=== PATIENT | male | born 1955 | race Caucasian/White ===

== ENCOUNTER 2024-09-15 10:48 | Outpatient (REF) | payer MEDICARE, SELFPAY ==
--- OUTSIDE RECORDS SUMMARY | 2024-09-15 11:55 | XMS_ITS | Continuity of Care Document ---
Author Organization [facility] Address [address] [facility] [place] [address] [place] [address] Assessment Encounter Date Assessment Date Assessment LastModified by Organization Details LastModified Time 09/15/2024 09/15/2024 Patient presented for medication refill. Patient tolerating medication well at current dose without adverse effects. Refilled as below. Discussed plan with patient, who expressed understanding . Follow up as noted below. [email or web address] Not available 09/15/2024 10:26:47 Plan of Treatment Reminders Order Date Submit Date Provider Last Modified By Organization Details Last Modified Time Details Appointments FOLLOW UP 15 2024 10:00A M AMY MORATAYA Not available Not available Not available Lab CMP, serum or plasma 2024 025 [facility], [address] [place] [address], [address], 09/15/2024 10:35:19 CBC w/ auto diff 2024 025 [facility], [address] [place] [address], [id number], 09/15/2024 10:35:19 PSA, serum or plasma 2024 025 [facility], [address] [place] [address], [address], 09/15/2024 10:35:19 Referral None recorded . Procedures None recorded . Surgeries None recorded . Imaging None recorded . Medication Orders None recorded . Patient TargetsNo targets recorded. Patient InstructionsNo instructions recorded. Reason for Referral None Reported. 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 3 13:51:27 M? ? ?ni? ? ?re's disease 84693140 Active 2022 AMY MORATAYA [address] [place], [address], [facility] 3 10:51:41 Infectio n of tooth 402186366 Active 2022 AMY MORATAYA [address] [place], [address], 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 Medical Equipment None Reported. Allergies Allergen ID Allergen Name Allergen Category Reaction Reaction Severity Criticality Documentation Date Start Date Code Code System Note Provider Name and Address Organization Details Recorded Time 7069 lisinopri l medicatio n cough Not available Not available 12/06/2022 40682 RxNorm AMY MORATAYA [address] [place], [address], [facility] 3 10:18:40 Medications Name Sig Start Date Stop Date Status Note LastModified by Organization Details LastModified Time amoxicillin 500 mg capsule TAKE 1 CAPSULE BY MOUTH EVERY 8 HOURS FOR 10 DAYS active Not Available Not Available No t Available losartan 25 mg tablet TAKE 1 TABLET BY MOUTH EVERY DAY active Not Available Not Available No t Available lisinopril 5 mg tablet TAKE 1 TABLET BY MOUTH EVERY DAY 12/06 completed Not Available Not Available Not Available Vitals Date Recorded Body height Body mass index (BMI) Body weight Heart rate Oxygen saturation Oxygen saturation in Arterial blood by Pulse oximetry Systolic blood pressure Diastolic blood pressure Provider Name and Address Organization Details Last Updated DateTime 5 181.61 cm 26.3 kg/m2 65332.2 2 g 68 /min 98 % 98 % 124 mm[Hg] 82 mm[Hg] Melinda White [facility] 5 10:13:29 Social History Question Answer Notes LastModified by Organizat ion Details LastModified Time Tobacco Smoking Status Never Smoker Not Available [employer] 03/07/2020 03:36:24 What Was The Date Of Your Most Recent Tobacco Screening? 09/15/2024 [email or web address] Information not available 09/15/2024 Sex: Unknown Functional Status None recorded. Mental Status None recorded. Family History Nothing Reported. Medical History No medical history recorded. Past Encounters Encounter ID Performer Location Encounter Start Date Encounter Closed Date Diagnosis/Indication Diagnosis SNOMED-CT Code Diagnosis ICD10 Code Diagnosis Note [id number] Sumeet Acuña DO [facility] [address] [facility],[place] [place] [address] 09/15/2024 10:06:19 09/15/2024 10:49:29 Hypertensive disorder 01807988 I10 agreed to trial 5 mg lisinopril Urinary fr equency due to benign prostatic hypertrophy 5969045314 19702 N40.1 R35.0 needs recheck levels Health Concerns Section Related Observation LastModified by Organization Detai ls LastModified Time None Recorded Concern Status LastModified by Organization Details LastModified Time None Recorded Payers Encounter Date Sequence Insurance Name Policy Number Policy Melo Covered Member ID Melo Member ID Guarantor Name 09/15/2024 1 [place]ICARE [place]: [employer] Alan Meier [id number] 3 Alan Meier Notes Date Note Type Note Provider Name a nd Address Organization Details Recorded Time 09/15/2024 text/html medication f/u HTN: today in the office the patient BP is 124/82 L arm sittingthe patient is doing well on the BP medication with no side effects and no adjustment of their medications needed today at the appointmentfeliberto frank on medicationdenies chest pain, sob, ankle swelling, orthopnea, palpitations seasonal allergies: stable per patientno significant changes or concernsdoesn't use anti-histamine, no severe enough to warrant it cough: occasional, influenced by the pollen and occasional acid refluxdeclines intervention at this time needs f/u lab workrecheck PSA AMY MORATAYA [address] [place] [address], [place], [address], [facility] 09/15/2024 10:36:41
--- OUTSIDE RECORDS SUMMARY | 2024-09-15 11:55 | XMS_ITS | Data Portability ---
Author Organization [facility] Address [address] [place] [address] Assessment Encounter Date Assessment Date Assessment LastModified by Organization Details LastModified Time 09/23/2022 09/23/2022 The patient denies recent falls or recurrent falls. Denies instability, weakness, abnormal gait, or difficulties with movement. The patient wears correct, supportive shoes and is not otherwise severely visually impaired. The patient is full weight bearing and if using the assistance of a cane or walker feels supported and stable with the use of such devices. All medical conditions have been taken into account that may pose a risk for the patient for falls. Home trudy, carpets and/or rugs do not pose a challenge for the patient. The patient has been educated about the use of vitamin D supplementation for bone health and prevention of hypotensive episodes that may increase risk for fall. All question and concerns were answered to the patient's satisfaction. [email or web address] Not available 09/23/2022 13:46:43 09/15/2024 09/15/2024 Patient presented for medication refill. Patient tolerating medication well at current dose without adverse effects. Refilled as below. Discussed plan with patient, who expressed understanding. Follow up as noted below. [email or web address] Not available 09/15/2024 10:26:47 Plan of Treatment Reminders Order Date Submit Date Provider Last Modified By Organization Details Last Modified Time Details Appointments FOLLOW UP 15 2024 10:00A M AMY MORATAYA Not available Not available Not available Lab CMP, serum or plasma 2024 025 [facility], [address] [place] [address], [place], [address], 09/15/2024 10:35:19 CBC w/ auto diff 2024 025 [facility], [address] [place] [address], [address], 09/15/2024 10:35:19 PSA, serum or plasma 2024 025 [facility], [address] [place] [address], [address], 09/15/2024 10:35:19 urinalysi s, dipstick [address] [facility], [address] [facility], [address], [place], [address], 08/15/2017 14:32:36 CMP, serum or plasma [address] [facility], [address] [place] [address], [address], 09/19/2017 06:44:09 lipids, total, serum [address] [facility], [address] [place] [address], [address], 09/19/2017 06:44:09 CBC w/ diff [address] [facility], [address] [place] [address], [address], 09/19/2017 06:44:09 PSA, total + free, serum or plasma [address] [facility], [address] [place] [address], [address], 09/19/2017 06:44:09 Referral None recorded. Procedures None recorded. Surgeries None recorded. Imaging US, duplex, carotid artery - Patient is self pay- does not have insurance 2022 023 [facility], [address] [place], [address], 09/25/2022 08:18:25 CT, head + brain, w/o contrast - Patient is self pay- does not have insurance 2022 023 [facility], [address] [facility], [place], [address], 09/25/2022 08:18:26 Medication Orders losartan 25 mg tablet 2022 023 FABIANO [id number], [address] [place], [address], 12/06/2022 10:18:26 lisinopri l 5 mg tablet 2022 023 rtryba [id number], [address] [place], [address], 12/06/2022 10:17:56 Patient TargetsNo targets recorded. Patient InstructionsNo instructions recorded. Reason for Referral None Reported. Results Created Date Observation Date Name Description Value Unit Range Abnormal Flag Note LastModifiedBy Organization Detail LastModifiedTime 08/16/19 18 08/15/2017 urina lysis , dipst ick Leukocytes Small Not Available [facility] [address], [place], [address], 08/15/2017 13:55:55 08/16/19 18 08/15/2017 urina lysis , dipst ick Nitrite negati ve Not Available [facility] [address] [place] [address], [place], [address], 08/15/2017 13:55:55 08/16/19 18 08/15/2017 urina lysis , dipst ick Urobilinogen .2 Not Available [facility] [address], [place], [address], 08/15/2017 13:55:55 08/16/19 18 08/15/2017 urina lysis , dipst ick Protein Trace Not Available [facility] [address], [place], [address], 08/15/2017 13:55:55 08/16/19 18 08/15/2017 urina lysis , dipst ick pH 6.0 Not Available [facility] [address] [facility] [address], [place], [address], 08/15/2017 13:55:55 08/16/19 18 08/15/2017 urina lysis , dipst ick Blood Large Not Available [facility] [address] [facility] [address], [place], [address], 08/15/2017 13:55:55 08/16/19 18 08/15/2017 urina lysis , dipst ick Specific [place] 1.020 Not Available [facility] [address] [facility] [address], [place], [address], 08/15/2017 13:55:55 08/16/19 18 08/15/2017 urina lysis , dipst ick Ketone Negati ve Not Available [facility] [address] [facility] [address], [place], [address], 08/15/2017 13:55:55 08/16/19 18 08/15/2017 urina lysis , dipst ick Bilirubin Negati ve Not Available [facility] [address] [facility] [address], [place], [address], 08/15/2017 13:55:55 08/16/19 18 08/15/2017 urina lysis , dipst ick Glucose Negati ve Not Available [facility] [address] [facility] [address], [place], [address], 08/15/2017 13:55:55 08/16/19 18 08/15/2017 urina lysis , dipst ick Appearance Clear Not Available [facility] [address] [facility] [address], [place], [address], 08/15/2017 13:55:55 08/16/19 18 08/15/2017 urina lysis , dipst ick Color Yellow Not Available [facility] [address] [facility] [address], [place], [address], 08/15/2017 13:55:55 10/04/19 23 10/03/2022 CT, head + brain , w/o contr ast No observ ation record ed. [address], [address], 10/04/2022 12:44:28 10/04/19 23 10/03/2022 US, jyoti redd, dotty id arter y No observ ation record ed. [address], [address], 10/04/2022 12:44:28 Result Notes None recorded. Problems Name Problem SNOMED Code Status Onset Date Resolution Date Notes Provider Name and Address Organization Details Recorded Time Dizzines s 045514521 Active 2022 AMY MORATAYA [address] [place] [address], [address], [facility] 3 13:50:12 Hyperten sive disorder 65798830 Active 2022 AMY MORATAYA [address] [place] [address], [address], [facility] 3 13:51:27 M? ? ?ni? ? ?re's disease 45715652 Active 2022 AMY MORATAYA [address] [place], [address], [facility] 3 10:51:41 Infectio n of tooth 664295621 Active 2022 AMY MORATAYA [address] [place], [address], [facility] 3 15:51:03 Rheumato id arthriti s 00830224 Active 2017 arthritis tx center Pam Clarkgordon mead [facility] 8 16:43:20 Inguinal hernia 961665907 Active 2017 B/L repair 35 years ago Pam Clarkgordon mead 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 Pam Clarkgordon mead [facility] 8 16:44:12 Benign prostati c hyperpla marquez 264082122 Active 2017 [facility] [address] [place], [address], [facility] 8 14:15:22 Blood in urine 04304905 Active 2017 has seen uro, with neg cysto August [facility] [address] [place], [address], [facility] 8 14:16:26 Urinary frequenc y due to benign prostati c hypertro phy 14123453030 9102 Active 2024 AMY MORATAYA [address] [place], [address], [facility] 5 10:27:07 Problem Notes None recorded. Procedures Surgical History None recorded. Imaging Results Imaging Date Name Status LastModified by Organiz ation Details LastModified Time 10/03/2022 CT, head + brain, w/o contrast completed [address], [address], 10/04/2022 12:44:28 10/03/2022 US, duplex, carotid artery completed [address], [address], 10/04/2022 12:44:28 Procedure Notes None recorded. Medical Equipment None Reported. Allergies Allergen ID Allergen Name Allergen Category Reaction Reaction Severity Criticality Documentation Date Start Date Code Code System Note Provider Name and Address Organization Details Recorded Time 0919 lisinopri l medicatio n cough Not available Not available 12/06/2022 97425 RxNorm AMY MORATAYA [address] [place], [address], [facility] 3 10:18:40 Medications Name Sig [...] and Address Organization Details Last Updated DateTime 8 181.61 cm 25.1 kg/m2 22779.8 9 g 74 /min 96 % 96 % 110 mm[Hg] 90 mm[Hg] Pam Leger [facility] 8 13:55:06 Date Recorded Systolic blood pressure Diastolic blood pressure Provider Name and Address Organization Details Last Updated DateTime 08/15/2017 112 mm[Hg] 86 mm[Hg] August SANDOVAL AndreaAMBER [address] [place], [address], [facility] 08/15/2017 14:31:28 Date Recorded Body weight Heart rate Oxygen saturation Oxygen saturation in Arterial blood by Pulse oximetry Systolic blood pressure Diastolic blood pressure Provider Name and Address Organization Details Last Updated DateTime 3 [address].8 4 g 78 /min 98 % 98 % 160 mm[Hg] 88 mm[Hg] Ana Rosa Rodriguez [facility] 3 13:39:21 Date Recorded Body height Body mass index (BMI) Body weight Heart rate Oxygen saturation Oxygen saturation in Arterial blood by Pulse oximetry Systolic blood pressure Diastolic blood pressure Provider Name and Address Organization Details Last Updated DateTime 5 181.61 cm 26.3 kg/m2 45960.2 2 g 68 /min 98 % 98 % 124 mm[Hg] 82 mm[Hg] Melinda White [facility] 5 10:13:29 Social History Question Answer Notes LastModified by Organizat ion Details LastModified Time Tobacco Smoking Status Never Smoker Not Available [facility] 03/07/2020 03:36:24 What Was The Date Of Your Most Recent Tobacco Screening? 09/15/2024 [email or web address] Information not available 09/15/2024 Sex: Unknown Functional Status None recorded. Mental Status None recorded. Family History Nothing Reported. Medical History No medical history recorded. Past Encounters Encounter ID Performer Location Encounter Start Date Encounter Closed Date Diagnosis/Indication Diagnosis SNOMED-CT Code Diagnosis ICD10 Code Diagnosis Note [id number] Sumeet Acuña [facility] [address] [facility],[place] [address] 08/15/2017 13:19:26 08/15/2017 15:54:04 Adult health examination 074993048 Z00.00 Benign pro static hyperplasia 823461389 N40.0 will recheck PSA Actinic keratosis 007 L57.0 derm referral - pt given list will call once he has insurance [id number] Sumeet Acuña [facility] [address] [facility] [place] [address] 09/23/2022 13:31:18 09/23/2022 14:04:53 Dizziness 171247806 R42 agreed to testing since this was not done in the ER Hypertensive disorder 38 715495 I10 agreed to trial 5 mg lisinopril [id number] Sumeet Acuña [facility] [address] [place] [address], [place] [address] 12/06/2022 08:07:31 12/06/2022 15:42:46 Hypertensive disorder 72948822 I10 agreed to trial 5 mg lisinopril [id number] Smueet Acuña [facility] [address] [place] [address],[facility] [place] [address] 09/15/2024 10:06:19 09/15/2024 10:49:29 Hypertensive disorder 04062469 I10 agreed to trial 5 mg lisinopril Urinary fr equency due to benign prostatic hypertrophy 9564213099 47509 N40.1 R35.0 needs recheck levels Health Concerns Section Related Observation LastModified by Organization Detai ls LastModified Time None Recorded Concern Status LastModified by Organization Details LastModified Time None Recorded Advance Directives Directive None Recorded Payers Encounter Date Sequence Insurance Name Policy Number Policy Melo Covered Member ID Melo Member ID Guarantor Name 08/15/2017 1 *SELF PAY* [employer] 09/23/2022 SLIDING FEE SCHEDULE - DISCOUNT Alan Meier 12/06/2022 SLIDING FEE SCHEDULE - DISCOUNT Alan Meier 09/15/2024 1 MEDICARE B-[place]: [employer] [facility] Alan Meier [id number] Alan Meier Notes Date Note Type Note Provider Name and Address Organization Details Recorded Time 8 text/html Annual WellnessReported bypatient.Diet and Nutrition:healthy diet; discussed vitamin and supplement use; discussed portion control; discussed maintaining calcium balance; discussed diet improvement Fracture Risk:no history of fractures; no recent explained fracture; no sudden unexplained fractures; no previous musculoskeletal injuries Physical Activity:exercises on a regular basis; good physical condition Additional Lifestyle Factors:no tobacco use; no alcohol intake Depression Risk:never feels sad, empty, or tearful; no loss of interest in activities; no significant changes in weight; no sleep disturbances or insomnia; no agitation; no loss of energy; no feelings of worthlessness or guilt; no thoughts of suicide; no history of depression; no history of mood disorders Hearing:no loss of hearing Vision:worse near; congenital vision near sightednessNotes:12 system ROS negative except where noted above- denies: chest pain, palp, sob, ankle swelling, visual problems, numbness or tingling extremities, abdominal pain, bowel/bladder issues, sexual dysfunction, abnormal bleeding, sx of sinus/respiratory infection , headaches, dizziness/lightheadedne ss, rashes, or nail changes. August YAMILET Andrea [address] [place] [address], [address], [facility] 08/15/2017 14:35:11 3 text/html ER fu/re-establish patient the patient reports that he developed balance issues, tinnitus, and pressure in the ears bilaterallyended up at the ER; BP elevated by cardio exam was unremarkablethe patient's BP is elevated today in office but he does report anxiousthe patient's BP at home is usually averages around mid's 140 over 70 to 80s will fu with pt after his imaging returnsagreed to this plan started on lisinopril 5 mgwill monitor BP at home and fu with pt with BP and imaging when he returns AMY MORATAYA [address] [place], [address], [facility] 09/23/2022 13:56:31 3 text/html BP check tele-med phone callpatient consents phone call 127/84 prior to this phone callwill cont to monitor his BP at homewill check it more closely does have the cough with lisinoprilagreed to fu with change to losartan instead which should control his BP just as well just without the cough no changes in symptomsoccasional dizziness, not as bad as before, hoping so of this is related to his BP AMY MORATAYA [address] [place], [address], [facility] 12/06/2022 10:27:09 5 text/html medication f/u HTN: today in the office the patient BP is 124/82 L arm sittingthe patient is doing well on the BP medication with no side effects and no adjustment of their medications needed today at the appointmentwell-control led on medicationdenies chest pain, sob, ankle swelling, orthopnea, palpitations seasonal allergies: stable per patientno significant changes or concernsdoesn't use anti-histamine, no severe enough to warrant it cough: occasional, influenced by the pollen and occasional acid refluxdeclines intervention at this time needs f/u lab workrecheck PSA AMY MORATAYA [address] [place], [address], [facility] 09/15/2024 10:36:41
[2024-09-15 13:32] LABS: MANUAL DIFF FLAG NO
[2024-09-15 13:56] LABS: Basophils Absolute Auto 0.1 X10*3/uL (0.0-0.2); Basophils Percent Auto 0.8 % (0-2); Eosinophils Absolute Auto 0.3 X10*3/uL (0.0-0.4); Eosinophils Percent Auto 3.5 % (0-4); Hematocrit 42.9 % (42.0-52.0); Hemoglobin 14.6 g/dl (14.0-18.0); Imm Gran Abs Auto 0.02 X10*3/uL (0.00-0.03); Imm Gran Pct Auto 0.3 % (0.0-0.4); Lymphocytes Absolute Auto 1.6 X10*3/uL (1.2-4.9); Lymphocytes Percent Auto 21.2 % (20-40); Mean Corpuscular Hemoglobin 31.6 pg (27.0-33.0); Mean Corpuscular Volume 92.9 fL (80.0-98.0); Mean Platelet Volume 9.8 fL (9.4-12.4); Monocytes Absolute Auto 0.3 X10*3/uL (0.1-1.2); Monocytes Percent Auto 4.5 % (2-11); NRBC Pct Auto 0.3 /100WBC (0.0-0.2); Neutrophils Absolute Auto 5.2 x10*3/uL (2.0-8.3); Neutrophils Percent Auto 69.7 % (45-73); Platelet Count 243 X10*3/uL (160-400); Red Blood Count 4.62 X10*6/uL (4.60-5.80); Red Cell Distribution Width 12.2 % (11.0-16.0); White Blood Count 7.4 X10*3/uL (4.8-10.8)
[2024-09-15 14:19] LABS: Alanine Aminotransferase 23 U/L (0-40); Albumin Level 3.9 g/dL (3.5-5.0); Anion Gap 12 (12-20); Aspartate Amino Transferase 21 U/L (5-37); Bilirubin Total 0.4 mg/dL (0.0-1.0); Blood Urea Nitrogen 19 mg/dL (9-16); Calcium 9.1 mg/dL (8.4-10.2); Carbon Dioxide 26 mmol/L (22-29); Chloride 105 mmol/L (96-108); Estimated Glomerular Filt Rate > 60; Glucose Random 90 mg/dL (60-115); Potassium 4.3 mmol/L (3.3-5.1); Sodium 139 mmol/L (135-145); Total Protein 6.8 g/dL (6.5-8.0)
[2024-09-15 14:25] LABS: Prostate Specific Antigen 9.35 ng/mL (<0.05-4.0)
[2024-09-15 14:33] LABS: Alkaline Phosphatase 64 U/L (39-117)
== END 2024-09-15 10:49 | disposition home or self-care (01) ==
LOC: HO.MANLDS 10:48
PROVIDERS: Visit Provider Physician Assistant
DX: Z12.5 Encounter for screening for malignant neoplasm of prostate (principal); N40.1 Benign prostatic hyperplasia with lower urinary tract symptoms
CPT/HCPCS: 36415; 80053; 84153; 85025

== ENCOUNTER 2024-12-08 15:48 | Outpatient (REF) | payer MEDICARE, MEDICAID, SELFPAY ==
--- OUTSIDE RECORDS SUMMARY | 2024-12-08 16:13 | XMS_ITS | Encounter Summary ---
Author Organization [facility] Address [address] [place] [address] Care Team Providers Care Project Manager/Design Manager Name Role Phone Sumeet Acuña DO Primary Care Provider [phone] Encounter Details Date Type Department Care Team (Late st Contact Info) Description 10/21/2024 Lab Requisition [facility] - Main Lab [address] [place] [address] Jimmy Palmer MD [address] [facility] [address] [place], [place] [id number] Elevated prostate specific antigen (PSA) Social History Tobacco Use Types Packs/Day Years Used Date Smoking Tobacco: Never Assessed Sex and Gender Information Value Date Recorded Sex Assigned at Not on file Legal Sex Male 4:55 PM EDT Gender Identity Not on file Sexual Orientation Not on file documented as of this encounter Plan of Treatment Not on file documented as of this encounter Procedures Procedure Name Priority Date/Time Associated Diagnosis Comments FLUOROQUINOLONE RESISTANT GNR IDENTIFICATION AND SUSCEPTIBILITY Routine 10/21/2024 12:00 AM EDT Elevated prostate specific antigen (PSA) CULTURE FLUOROQUINOLONE RESISTANT ORGANISM Routine 10/21/2024 12:00 AM EDT Elevated prostate specific antigen (PSA) documented in this encounter Results * Fluoroquinolone resistant GNR identification and susceptibility (10/21/2024 12:00 AM EDT) Result 1 No Fluoroquinolone Resistant GNR Detected. 10/24/2024 12:05 PM EDT [facility] Swab Rectum structure / Unknown 10/21/2024 10/21/2024 10:36 AM EDT Narrative [facility] - 10/24/2024 12:05 PM EDT Performed at: 01 - [facility] [address] [id number] Alarm Signal Operator: Heidi Petty MD, Phone: [phone] us Jimmy Palmer MD LAB MICROBIOLOGY - G ENERAL ORDERABLES Final Result Performing Organization Address City/[facility]/ZIP Co de Phone Number [facility] * Culture fluoroquinolone resistant organism (10/21/2024 12:00 AM EDT) Fluoroquinolone Resist GNR Cul Final report 10/24/2024 12:05 PM EDT [facility] Swab Rectum structure / Unknown 10/21/2024 10/21/2024 10:36 AM EDT Narrative [facility] - 10/24/2024 12:05 PM EDT Performed at: 01 - [facility] [address] [id number] Alarm Signal Operator: Heidi Petty MD, Phone: [phone] us Jimmy Palmer MD LAB MICROBIOLOGY - G ENERAL ORDERABLES Final Result Performing Organization Address City/[facility]/ZIP Co de Phone Number [facility] documented in this encounter Visit Diagnoses Diagnosis Elevated prostate specific antigen (PSA) documented in this encounter Care Teams Project Manager/Design Manager Relationship Specialty Start Date End Date Sumeet Acuña DO [address] [facility] [address] [place], [place] PCP - General Internal Medicine 10/21/24 documented as of this encounter
[2024-12-08 18:22] LABS: Appearance Urine Clear; Glucose Urine UA Negative (Negative); PH 7.0 (5.0-9.0); Specific Gravity - Urine 1.010 (1.005-1.025); UMIC TRIGGER UACC YES
[2024-12-08 18:27] LABS: Hematocrit 37.5 % (42.0-52.0); Hemoglobin 13.1 g/dl (14.0-18.0); Imm Gran Abs Auto 0.04 X10*3/uL (0.00-0.03); Imm Gran Pct Auto 0.5 % (0.0-0.4); Lymphocytes Absolute Auto 1.9 X10*3/uL (1.2-4.9); MANUAL DIFF FLAG SCAN; Mean Corpuscular HGB Conc 34.9 g/dl (31.0-36.0); Mean Corpuscular Hemoglobin 30.9 pg (27.0-33.0); Mean Corpuscular Volume 88.4 fL (80.0-98.0); NRBC Abs Auto 0.000 X10*3/uL (0.0-0.012); NRBC Pct Auto 0.0 /100WBC (0.0-0.2); Platelet Count 209 X10*3/uL (160-400); Red Blood Count 4.24 X10*6/uL (4.60-5.80); SCAN SMEAR FLAG 1; White Blood Count 7.4 X10*3/uL (4.8-10.8)
[2024-12-08 18:33] LABS: UACC Culture Trigger YES
[2024-12-08 18:44] LABS: Alanine Aminotransferase 91 U/L (0-40); Albumin Level 3.8 g/dL (3.5-5.0); Alkaline Phosphatase 79 U/L (39-117); Anion Gap 11 (12-20); Aspartate Amino Transferase 66 U/L (5-37); Blood Urea Nitrogen 13 mg/dL (9-16); Calcium 8.7 mg/dL (8.4-10.2); Carbon Dioxide 25 mmol/L (22-29); Chloride 109 mmol/L (96-108); Estimated Glomerular Filt Rate > 60; Potassium 4.0 mmol/L (3.3-5.1); Sodium 141 mmol/L (135-145); Total Protein 6.7 g/dL (6.5-8.0)
== END 2024-12-08 15:49 | disposition home or self-care (01) ==
LOC: HO.MANLDS 15:48
PROVIDERS: Visit Provider Physician Assistant
DX: N41.0 Acute prostatitis (principal); A41.9 Sepsis, unspecified organism
CPT/HCPCS: 36415; 80053; 81001; 85025; 87086